=== PATIENT | male | born 1955 | race African-American/Black ===

== ENCOUNTER 2019-08-30 08:47 | Emergency (ER) | payer BC, OTHER ==
[~2019-08-30] VITALS: Ht 185.4 cm; Wt 83.1 kg
[2019-08-30 09:56] VITALS: BP 154/100
[2019-08-30] MEDS ORDERED: ACETAMINOPHEN 325MG TABLET PO ONE (10:00)
== END 2019-08-30 10:22 | disposition home or self-care (01) ==
LOC: ER 09:03
DX: G44.009 Cluster headache syndrome, unspecified, not intractable (principal); I10 Essential (primary) hypertension; R05 Cough
CPT/HCPCS: 99282

== ENCOUNTER 2019-08-31 13:10 | Emergency (ER) | payer OTHER ==
[~2019-08-31] VITALS: Ht 185.4 cm; Wt 83.0 kg
[2019-08-31 15:37] VITALS: BP 125/80
== END 2019-08-31 15:43 | disposition home or self-care (01) ==
LOC: ER 13:10
DX: Z20.818 Contact with and (suspected) exposure to other bacterial communicable diseases (principal); J40 Bronchitis, not specified as acute or chronic; Z71.89 Other specified counseling
CPT/HCPCS: 99282; 99283